=== PATIENT | male | born 1995 | race Caucasian/White ===

== ENCOUNTER 2023-04-12 14:22 | Outpatient (CLI) | payer BC, SELFPAY ==
--- NOTE | 2023-04-12 14:30 | MR_ITS ---
WS: [id number] MRI BRAIN WITH AND WITHOUT CONTRAST HISTORY: G40.909 - Epilepsy, unspecified, not intractable, progressing. COMPARISON: None available. TECHNIQUE: Multiplanar imaging performed through the brain with MultiHance 14 ml's IV. No acute infarcts are seen. Navarro-white matter differentiation is well preserved. Symmetric hippocampa l formations. No atrophy. No susceptibility artifacts or prior lacunar infarcts. Ventricles and extra-axial spaces are normal. Clivus and pituitary gland are normal. Visualized posterior fossa and brainstem are also normal. Postcontrast images are negative for masses or vascular malformations. Dural venous sinuses are normal. Paranasal sinuses: Well aerated with no significant disease. Mastoid air cells: Normal. Calvarium and scalp: Normal. IMPRESSION: 1. Normal MRI brain with contrast. 2. Normal hippocampal formations. 3. No areas of abnormal enhancement or mass.
[2023-04-12] MEDS: gadobenate dimeglumine 20 mL vial IV (15:27)
[2023-04-13 10:40] LABS: Levetiracetam Immunoassy 19.3 mcg/mL (6.0-46.0)
== END 2023-04-12 14:23 | disposition home or self-care (01) ==
PROVIDERS: PCP Nurse Practitioner Family; Visit Provider Psychiatry & Neurology Neurology
DX: G40.909 Epilepsy, unspecified, not intractable, without status epilepticus (principal)
CPT/HCPCS: 70553; 80177; A9577